=== PATIENT | male | born 1950 | race Caucasian/White ===

== ENCOUNTER 2022-07-11 02:42 | Emergency (ER) | payer MEDICARE ==
[~2022-07-11] VITALS: Ht 172.7 cm; Wt 71.7 kg
[2022-07-11] MEDS ORDERED: ONDANSETRON 4 MG/2 ML VIAL ONE (02:58)
[2022-07-11] MEDS ORDERED: MORPHINE SULFATE 4 MG/1 ML DISP.SYRIN ONE (02:58)
[2022-07-11] MEDS ORDERED: KETOROLAC TROMETHAMINE 15 MG INJ ONE (02:58)
[2022-07-11] MEDS ORDERED: CLINDAMYCIN 900MG/D5W 100ML IVPB **ER PYXIS ONLY IJ ONE (02:59)
[2022-07-11] MEDS ORDERED: IV NORMAL SALINE 1000 ML BAG IV ONE (03:00)
[2022-07-11] MEDS ORDERED: CLINDAMYCIN PHOSPHATE IV 900 MG in IV DEXTROSE 5% 100 ML IV ONE (03:00)
[2022-07-11] MEDS ORDERED: KETOROLAC TROMETHAMINE 15 MG INJ IVP ONE (03:00)
[2022-07-11] MEDS ORDERED: MORPHINE SULFATE 2 MG/1 ML DISP.SYRIN IV ONE (03:00)
[2022-07-11] MEDS ORDERED: ONDANSETRON 4 MG/2 ML VIAL IV ONE (03:00)
--- NOTE | 2022-07-11 03:00 | NUR ---
Patient BIB [facility] from home c/o slip and fall, denies trauma. Patient had a LT knee surgery 06/26/22. Patient stated he tested + for covid 3 days ago and has a temperature of 103.1 upon arrival. Patient is not vaccinated. A/Ox4, NAD noted. Patient arrived with NS 1000ml infusing on the LT AC 20G
--- NOTE | 2022-07-11 03:11 | NUR ---
Cooling measure provided.
[2022-07-11] MEDS ORDERED: ACETAMINOPHEN ES 500 MG TABLET ONE (03:16)
[2022-07-11 03:24] LABS: HEMATOCRIT 34.2 % (36.7-47.1); MEAN CORPUSCULAR HEMOGLOBIN 30.4 uug (23.8-33.4); MEAN CORPUSCULAR VOLUME 89.3 fL (73.0-96.2); PLATELET COUNT (AUTO) 265 K/uL (152-348)
[2022-07-11 03:26] LABS: CARBON DIOXIDE 25 mmol/L (21-32); CHLORIDE 97 mmol/L (98-107); CREATININE 1.4 mg/dL (0.6-1.3); GLUCOSE 134 mg/dL (74-106); POTASSIUM 3.8 mmol/L (3.5-5.1); UREA NITROGEN, BLOOD 19 mg/dL (7-18)
[2022-07-11] MEDS ORDERED: ACETAMINOPHEN ES 500 MG TABLET PO ONE (03:30)
--- NOTE | 2022-07-11 03:30 | NUR ---
IV fluids from the field completed. Running IV fluids 1L NS per Dr Lynn order.
[2022-07-11 03:32] LABS: ALANINE AMINOTRANSFERASE 24 U/L (16-63); ALKALINE PHOSPHATASE 73 U/L (50-136); ASPARTATE AMINOTRANSFERASE 24 U/L (15-37); BILIRUBIN,DIRECT 0.1 mg/dL (0.0-0.2); BILIRUBIN,TOTAL 0.3 mg/dL (0.2-1.0)
[2022-07-11] MEDS ORDERED: CLIN300C12 PO (04:08)
--- NOTE | 2022-07-11 05:05 | NUR ---
Patient discharged to home in stable condition. Written and verbal after care instructions given. Patient verbalizes understanding of instructions. Stressed follow up or return to ER for worsening s/s. Patient wheeled out of the room and assisted to private car picked up by his son. All belongings with pt.
[2022-07-11 05:10] VITALS: BP 107/53
== END 2022-07-11 05:05 | disposition home or self-care (01) ==
LOC: ER 02:47
DX: U07.1 COVID-19 (principal); E86.0 Dehydration; Z96.652 Presence of left artificial knee joint; R00.0 Tachycardia, unspecified; M47.894 Other spondylosis, thoracic region; R91.8 Other nonspecific abnormal finding of lung field; I25.2 Old myocardial infarction
CPT/HCPCS: 99284; 96365; 96375; 71045; 80076; 80048; 85025; 36415; J3490 ×2; J1885; J2405; J2270; J7040; A4663; A9150